=== PATIENT | male | born 1990 ===

== ENCOUNTER 2025-02-23 08:06 | Day surgery (SDC) | payer OTHER ==
[2025-02-21 12:21] VITALS: BP 123/85
[~2025-02-23] VITALS: Ht 167.6 cm; Wt 79.4 kg
[2025-02-23] MEDS ORDERED: POVIDONE-IODINE 118 ML BOTT TOP ONE (10:30)
[2025-02-23] MEDS ORDERED: DIBUCAINE 30 GM TUBE RECTAL ONE (10:30)
[2025-02-23] MEDS ORDERED: LIDOCAINE HCL 1% 20 ML VIAL IJ ONE (10:30)
[2025-02-23] MEDS ORDERED: CEFTRIAXONE SODIUM 2,000 MG VIAL IV ONE (10:30)
[2025-02-23] MEDS ORDERED: BUPIVACAINE HCL/PF 0.25% 30ML VIAL InF ONE (10:30)
[2025-02-23] MEDS ORDERED: METRONIDAZOLE/SODIUM CHLORIDE 500 MG/100 ML PIGGYBACK IV ONE (10:30)
[2025-02-23] MEDS ORDERED: HEMOSTATIC MATRIX 1 KIT KIT TOP ONE (10:30)
== END 2025-02-23 14:50 | disposition home or self-care (01) ==
LOC: CIR.AMB 08:06
PROVIDERS: ATTEND Colon & Rectal Surgery
DX: K60.1 Chronic anal fissure (principal); K62.4 Stenosis of anus and rectum